=== PATIENT | male | born 1955 | race Caucasian/White ===

== ENCOUNTER 2016-05-21 19:17 | Inpatient (IN) | payer BC, OTHER ==
[~2016-05-21] VITALS: Ht 172.7 cm; Wt 91.0 kg
[~2016-05-21 19:17] MED LIST: ASPI81CH43 PO; Atorvastatin Calcium PO; CLOP75TA28 PO; ENA2.5T PO; FLU05NSL; METO25TA5 PO
[2016-05-21 20:16] LABS: Basophils # (auto) 0 uL; Basophils % (auto) 0.3 % (0.0-2.0); Eosinophils # (auto) 0.2 uL; Eosinophils % (auto) 1.9 % (0.0-7.0); Hematocrit 40.8 % (41.0-53.0); Hemoglobin 13.8 g/dL (13.5-17.5); Lymphocytes # (auto) 1.8 uL; Lymphocytes % (auto) 19.9 % (10.0-50.0); Mean Corpuscular Hemoglobin 28.7 pg (28.0-32.0); Mean Corpuscular Hgb Conc. 33.8 g/dL (32.0-36.0); Mean Corpuscular Volume 84.9 fL (80.0-100.0); Mean Platelet Volume 9.7 fL (7.4-10.4); Monocytes # (auto) 0.8 uL; Monocytes % (auto) 8.8 % (0.0-12.0); Neutrophils # (auto) 6.1 uL; Neutrophils % (auto) 69.1 % (37.0-80.0); Platelet Count (auto) 224 10^3/uL (140-450); Red Cell Distribution Width 13.2 % (11.6-16.0); White Blood Cell 8.9 10^3/uL (4.4-10.8)
[2016-05-21 20:27] LABS: INR 1.07 (0.9-1.15); Partial Thromboplastin Time 27.2 sec (22.64-33.71)
[2016-05-21 20:37] LABS: Albumin 3.6 g/dL (3.4-5.0); Alkaline Phosphatase 93 U/L (45-117); Anion Gap 9 (5-15); Aspartate Aminotransferase 12 U/L (15-37); BUN/Creatinine Ratio 15.4; Bilirubin, Total 1.3 mg/dL (0.2-1.0); Blood Urea Nitrogen 18 mg/dL (7-18); Calcium 8.7 mg/dL (8.5-10.1); Carbon Dioxide 28 mmol/L (21-32); Chloride 97 mmol/L (98-107); GFR African American 82 mL/min; GFR Non-African American 67 mL/min; Glucose 263 mg/dL (74-106); Sodium 134 mmol/L (136-145)
[2016-05-21 20:41] LABS: B-Type Natriuretic Peptide 29.12 pg/mL (0-100)
[2016-05-21 20:44] LABS: Temperature: 21.1 C (20.0-25.0)
[2016-05-21 21:10] LABS: Urine Bilirubin Negative (Negative); Urine Blood Negative /uL (Negative); Urine Color Yellow (Yellow); Urine Hyaline Cast FEW /lpf (0 - 2); Urine Ketone TRACE (Negative); Urine Mucus FEW (None Seen); Urine Nitrite Negative (Negative); Urine RBC <1 /hpf (0 - 3); Urine Urobilinogen Normal (Negative)
[2016-05-21 21:13] LABS: Urine Glucose 3+ mg/dL (Normal)
[2016-05-21] MEDS ORDERED: MORPHINE SULF INJ 2 MG/ML SYRINGE 1ML IV ONE (23:15)
[2016-05-21] MEDS ORDERED: IPRATROPIUM BROM 0.5 MG/2.5ML INH SOL NEB ONE (23:45)
[2016-05-22] MEDS ORDERED: cefTRIAXone 1GM/50ML D5W 50 ML IV ONE
[2016-05-22] MEDS ORDERED: KETOROLAC TROMETH 30 MG/ML 1ML VIAL IV ONE (00:45)
[2016-05-22] MEDS ORDERED: NITROGLYCERIN 0.4 MG SL TAB SL PRN (04:15)
[2016-05-22] MEDS ORDERED: DEXTROSE (50%) 50ML SYRG IV PRN ×2 (04:15→15:30)
[2016-05-22] MEDS ORDERED: TEMAZEPAM 15 MG CAP PO PRN (04:15)
[2016-05-22] MEDS ORDERED: MORPHINE SULF INJ 2 MG/ML SYRINGE 1ML IV PRN (04:15)
[2016-05-22] MEDS ORDERED: ACETAMINOPHEN 325 MG TAB PO PRN (04:15)
[2016-05-22 05:22] VITALS: BP 143/84
[2016-05-22] MEDS: HYDROcodone-ACET 5/325MG TAB PO PRN ×2 (05:49→10:17)
[2016-05-22] MEDS: ACCU-CHEK COMFORT CURVE STRIP VI SCH ×4 (05:54→23:29)
[2016-05-22] MEDS: InsuLIN REG 1unit/0.01ml Soln (100units/ml) SC SCH ×4 (06:00→23:32)
[2016-05-22] MEDS ORDERED: METF-312 PO ×2 (06:24→06:26)
[2016-05-22 08:00] VITALS: BP 121/65
[2016-05-22 08:07] VITALS: BP 121/65
[2016-05-22] MEDS ORDERED: ASPirin 81 mg TAB PO SCH (10:00)
[2016-05-22] MEDS: FAMOTIDINE 20 MG TAB PO SCH ×2 (10:16→21:31)
[2016-05-22] MEDS: CLOPIDOGREL BISULFATE 75 MG TAB PO SCH (10:17)
[2016-05-22] MEDS: ENALAPRIL MALEATE 2.5 MG TAB PO SCH (10:18)
[2016-05-22] MEDS: METOPROLOL TARTRATE 25 MG TAB PO SCH ×2 (10:18→21:31)
[2016-05-22] MEDS: ENOXAPARIN SOD 40 MG/0.4 ML SYRINGE SC SCH (10:19)
[2016-05-22] MEDS: LEVOFLOXACIN 500MG 100 ML IV SCH (10:20)
[2016-05-22 13:00] VITALS: BP 105/54
[2016-05-22] MEDS: ACETYLCYSTEINE ORAL for CIN 20%(200MG/ML) 4ML PO SCH ×2 (13:38→21:33)
[2016-05-22] MEDS: SODIUM BICARBONATE 50ML VIAL 150 ML in D5W 5% 1,000 ML IV SCH (13:39)
[2016-05-22] MEDS: MORPHINE SULFATE 4 MG/ML SYRG IV PRN ×3 (15:44→23:53)
[2016-05-22] MEDS ORDERED: IOHEXOL 350 MG/ML 100ML IJ ONE (15:47)
[2016-05-22 16:26] VITALS: BP 105/65
[2016-05-22] MEDS: ATORVASTATIN 20 MG TAB PO SCH (21:31)
[2016-05-22 22:00] VITALS: BP 114/65
[2016-05-23] MEDS: SODIUM BICARBONATE 50ML VIAL 150 ML in D5W 5% 1,000 ML IV SCH (00:32)
[2016-05-23 05:00] VITALS: BP 121/75
[2016-05-23] MEDS: ONDANSETRON HCL 4 MG/2 ML VIAL IV PRN ×3 (05:07→20:54)
[2016-05-23] MEDS: ACCU-CHEK COMFORT CURVE STRIP VI SCH ×3 (05:34→18:00)
[2016-05-23] MEDS: InsuLIN REG 1unit/0.01ml Soln (100units/ml) SC SCH ×3 (05:35→18:00)
[2016-05-23 05:43] LABS: Basophils # (auto) 0 uL; Eosinophils # (auto) 0 uL; Eosinophils % (auto) 0.1 % (0.0-7.0); Hematocrit 38.9 % (41.0-53.0); Hemoglobin 13.2 g/dL (13.5-17.5); Lymphocytes # (auto) 1.1 uL; Lymphocytes % (auto) 8.1 % (10.0-50.0); Mean Corpuscular Hemoglobin 28.9 pg (28.0-32.0); Mean Corpuscular Volume 85.1 fL (80.0-100.0); Mean Platelet Volume 10.3 fL (7.4-10.4); Monocytes # (auto) 1.4 uL; Monocytes % (auto) 10.2 % (0.0-12.0); Neutrophils # (auto) 11.4 uL; Neutrophils % (auto) 81.6 % (37.0-80.0); Platelet Count (auto) 225 10^3/uL (140-450); Red Cell Distribution Width 13.4 % (11.6-16.0)
[2016-05-23 06:04] LABS: Potassium 4.1 mmol/L (3.5-5.1)
[2016-05-23 06:10] LABS: Albumin 3.2 g/dL (3.4-5.0); Calcium 8.6 mg/dL (8.5-10.1)
[2016-05-23 06:12] LABS: Bilirubin, Total 1.7 mg/dL (0.2-1.0); Total Protein 7.8 g/dL (6.4-8.2)
[2016-05-23] MEDS: glipiZIDE 5 MG TAB PO SCH ×2 (06:18→18:42)
[2016-05-23 09:14] VITALS: BP 117/69
[2016-05-23] MEDS: CLOPIDOGREL BISULFATE 75 MG TAB PO SCH (09:56)
[2016-05-23] MEDS: ASPirin-EC 81 mg tab PO SCH (09:57)
[2016-05-23] MEDS: FAMOTIDINE 20 MG TAB PO SCH ×2 (09:57→22:08)
[2016-05-23] MEDS: METOPROLOL TARTRATE 25 MG TAB PO SCH ×2 (09:57→22:09)
[2016-05-23] MEDS: ENOXAPARIN SOD 40 MG/0.4 ML SYRINGE SC SCH (09:57)
[2016-05-23] MEDS: ENALAPRIL MALEATE 2.5 MG TAB PO SCH (09:57)
[2016-05-23] MEDS: LEVOFLOXACIN 500MG 100 ML IV SCH (09:58)
[2016-05-23] MEDS: SODIUM CHLORIDE 0.9% 1,000 ML IV SCH ×2 (10:12→23:47)
[2016-05-23] MEDS: ACETYLCYSTEINE ORAL for CIN 20%(200MG/ML) 4ML PO SCH ×2 (10:28→22:09)
[2016-05-23 13:00] VITALS: BP 101/51
[2016-05-23] MEDS: MORPHINE SULFATE 4 MG/ML SYRG IV PRN ×2 (16:47→20:54)
[2016-05-23 16:52] VITALS: BP 116/72
[2016-05-23 20:00] VITALS: BP 117/61
[2016-05-23 22:02] VITALS: BP 117/61
[2016-05-23] MEDS: ATORVASTATIN 20 MG TAB PO SCH (22:09)
[2016-05-24] MEDS: InsuLIN REG 1unit/0.01ml Soln (100units/ml) SC SCH ×4 (00:13→17:15)
[2016-05-24] MEDS: ACCU-CHEK COMFORT CURVE STRIP VI SCH ×4 (00:13→17:07)
[2016-05-24] MEDS: MORPHINE SULFATE 4 MG/ML SYRG IV PRN ×5 (04:00→21:16)
[2016-05-24] MEDS: ONDANSETRON HCL 4 MG/2 ML VIAL IV PRN ×5 (04:00→21:16)
[2016-05-24 04:50] VITALS: BP 111/65
[2016-05-24] MEDS: glipiZIDE 5 MG TAB PO SCH ×2 (06:56→17:06)
[2016-05-24 09:05] VITALS: BP 111/68
[2016-05-24 09:22] LABS: Basophils # (auto) 0 uL; Basophils % (auto) 0.1 % (0.0-2.0); Eosinophils # (auto) 0.1 uL; Eosinophils % (auto) 0.6 % (0.0-7.0); Hematocrit 39.4 % (41.0-53.0); Hemoglobin 13.4 g/dL (13.5-17.5); Lymphocytes # (auto) 1.3 uL; Lymphocytes % (auto) 10.3 % (10.0-50.0); Mean Corpuscular Volume 85.3 fL (80.0-100.0); Mean Platelet Volume 9.9 fL (7.4-10.4); Monocytes # (auto) 1.3 uL; Monocytes % (auto) 10.3 % (0.0-12.0); Neutrophils # (auto) 10.3 uL; Neutrophils % (auto) 78.7 % (37.0-80.0); Platelet Count (auto) 246 10^3/uL (140-450)
[2016-05-24 09:36] LABS: BUN/Creatinine Ratio 22.9; Calcium 8.8 mg/dL (8.5-10.1); Magnesium 2.4 mg/dL (1.6-2.6)
[2016-05-24] MEDS: FAMOTIDINE 20 MG TAB PO SCH ×2 (09:51→21:27)
[2016-05-24] MEDS: CLOPIDOGREL BISULFATE 75 MG TAB PO SCH (09:51)
[2016-05-24] MEDS: ENOXAPARIN SOD 40 MG/0.4 ML SYRINGE SC SCH (09:51)
[2016-05-24] MEDS: ASPirin-EC 81 mg tab PO SCH (09:51)
[2016-05-24] MEDS: METOPROLOL TARTRATE 25 MG TAB PO SCH ×2 (09:51→21:27)
[2016-05-24] MEDS: LEVOFLOXACIN 500MG 100 ML IV SCH (09:51)
[2016-05-24] MEDS: SODIUM CHLORIDE 0.9% 1,000 ML IV SCH (12:17)
[2016-05-24 13:43] VITALS: BP 96/58
[2016-05-24] MEDS ORDERED: FUROSEMIDE 20 MG/2 ML VIAL IV ONE (15:45)
[2016-05-24 16:19] VITALS: BP 125/74
[2016-05-24 20:00] VITALS: BP 114/56
[2016-05-24] MEDS: ATORVASTATIN 20 MG TAB PO SCH (21:27)
[2016-05-24 21:54] VITALS: BP 114/56
[2016-05-25] MEDS: ACCU-CHEK COMFORT CURVE STRIP VI SCH ×3 (00:34→11:57)
[2016-05-25] MEDS: InsuLIN REG 1unit/0.01ml Soln (100units/ml) SC SCH ×3 (00:37→12:18)
[2016-05-25 04:38] VITALS: BP 113/63
[2016-05-25 05:51] LABS: Basophils # (auto) 0 uL; Basophils % (auto) 0.4 % (0.0-2.0); Eosinophils # (auto) 0.2 uL; Eosinophils % (auto) 1.7 % (0.0-7.0); Hematocrit 36.2 % (41.0-53.0); Hemoglobin 12.1 g/dL (13.5-17.5); Lymphocytes # (auto) 1.3 uL; Lymphocytes % (auto) 13.2 % (10.0-50.0); Mean Corpuscular Hemoglobin 28.7 pg (28.0-32.0); Mean Corpuscular Hgb Conc. 33.5 g/dL (32.0-36.0); Mean Corpuscular Volume 85.7 fL (80.0-100.0); Mean Platelet Volume 10.3 fL (7.4-10.4); Monocytes # (auto) 1.2 uL; Monocytes % (auto) 12.7 % (0.0-12.0); Neutrophils # (auto) 7.1 uL; Platelet Count (auto) 243 10^3/uL (140-450); Red Cell Distribution Width 13.5 % (11.6-16.0); White Blood Cell 9.8 10^3/uL (4.4-10.8)
[2016-05-25 06:16] LABS: Potassium 3.5 mmol/L (3.5-5.1)
[2016-05-25 06:25] LABS: Albumin 2.5 g/dL (3.4-5.0); BUN/Creatinine Ratio 19.8; Calcium 8.1 mg/dL (8.5-10.1); Magnesium 2.4 mg/dL (1.6-2.6)
[2016-05-25] MEDS: glipiZIDE 5 MG TAB PO SCH (06:27)
[2016-05-25 06:28] LABS: Bilirubin, Total 1.4 mg/dL (0.2-1.0)
[2016-05-25 09:11] VITALS: BP 124/74
[2016-05-25] MEDS: ENOXAPARIN SOD 40 MG/0.4 ML SYRINGE SC SCH (10:01)
[2016-05-25] MEDS: CLOPIDOGREL BISULFATE 75 MG TAB PO SCH (10:05)
[2016-05-25] MEDS: ASPirin-EC 81 mg tab PO SCH (10:06)
[2016-05-25] MEDS: LEVOFLOXACIN 500MG 100 ML IV SCH (10:06)
[2016-05-25] MEDS: METOPROLOL TARTRATE 25 MG TAB PO SCH (10:06)
[2016-05-25] MEDS: FAMOTIDINE 20 MG TAB PO SCH (10:06)
[2016-05-25 13:39] VITALS: BP 129/71
== END 2016-05-25 15:00 | disposition home or self-care (01) | DRG 194 ==
LOC: ER 19:19 → TELE 19:20 → CENTRAL 05-22 05:00 → TELE-CENTR 05-23 00:17
PROVIDERS: ADMIT Nurse Practitioner; ATTEND Internal Medicine
DX: J18.8 Other pneumonia, unspecified organism (principal); E87.1 Hypo-osmolality and hyponatremia; R17 Unspecified jaundice; N18.2 Chronic kidney disease, stage 2 (mild); I25.10 Atherosclerotic heart disease of native coronary artery without angina pectoris; E78.5 Hyperlipidemia, unspecified; E11.65 Type 2 diabetes mellitus with hyperglycemia; E11.22 Type 2 diabetes mellitus with diabetic chronic kidney disease; I12.9 Hypertensive chronic kidney disease with stage 1 through stage 4 chronic kidney disease, or unspecified chronic kidney disease; Z95.5 Presence of coronary angioplasty implant and graft; Z79.4 Long term (current) use of insulin; I25.2 Old myocardial infarction
CPT/HCPCS: 36415; 71020; 71275; 76705; 80048; 80053; 81001; 82962; 83036; 83735; 83880; 84100; 84443; 84484; 85025; 85379; 85610; 85730; 93005; 93306; 94640; 96365; 96375; J0696; J1815; J1885; J1956; J2405

== ENCOUNTER → 2016-08-07 | Outpatient (CLI) | payer BC ==
[~2016-08-07] MED LIST changes: -ENA2.5T PO; +METF-312 PO; -METO25TA5 PO
[2016-08-07 09:22] LABS: Urine RBC None Seen /hpf (0 - 3)
[2016-08-07 09:27] LABS: Basophils # (auto) 0 uL; Basophils % (auto) 0.7 % (0.0-2.0); Eosinophils # (auto) 0.2 uL; Eosinophils % (auto) 3.7 % (0.0-7.0); Hematocrit 42.4 % (41.0-53.0); Lymphocytes # (auto) 1.9 uL; Lymphocytes % (auto) 38.1 % (10.0-50.0); Mean Corpuscular Hemoglobin 28.4 pg (28.0-32.0); Mean Corpuscular Volume 86.1 fL (80.0-100.0); Mean Platelet Volume 9.1 fL (7.4-10.4); Monocytes # (auto) 0.4 uL; Monocytes % (auto) 8.8 % (0.0-12.0); Neutrophils # (auto) 2.5 uL; Neutrophils % (auto) 48.7 % (37.0-80.0); Platelet Count (auto) 212 10^3/uL (140-450); Red Cell Distribution Width 14.8 % (11.6-16.0); White Blood Cell 5.1 10^3/uL (4.4-10.8)
[2016-08-07 09:49] LABS: Urine Bilirubin Negative (Negative); Urine Blood Negative /uL (Negative); Urine Color Yellow (Yellow); Urine Ketone Negative (Negative); Urine Nitrite Negative (Negative); Urine Squamous Epithelial Cell FEW /hpf (<5); Urine Urobilinogen Normal (Negative); Urine pH 5.5 (5.0-8.0)
[2016-08-07 09:53] LABS: BUN/Creatinine Ratio 14.2; Potassium 4.6 mmol/L (3.5-5.1)
[2016-08-07 10:03] LABS: Urine Glucose 4+ mg/dL (Normal)
== END | disposition home or self-care (01) ==
LOC: LAB 08:54
DX: E11.21 Type 2 diabetes mellitus with diabetic nephropathy (principal)
CPT/HCPCS: 36415; 80053; 80061; 81001; 82043; 82306; 83036; 84439; 84443; 84481; 85025; 86803

== ENCOUNTER → 2016-12-13 | Outpatient (CLI) | payer BC ==
[~2016-12-13] MED LIST changes: -METF-312 PO; +METF-370 PO
[2016-12-13 11:23] LABS: Albumin 3.8 g/dL (3.4-5.0); BUN/Creatinine Ratio 20.6; Bilirubin, Total 0.9 mg/dL (0.2-1.0); Calcium 8.8 mg/dL (8.5-10.1); Potassium 4.3 mmol/L (3.5-5.1); Total Protein 7.4 g/dL (6.4-8.2)
== END | disposition home or self-care (01) ==
LOC: LAB 10:32
PROVIDERS: ATTEND Internal Medicine
DX: I10 Essential (primary) hypertension (principal); E11.9 Type 2 diabetes mellitus without complications
CPT/HCPCS: 36415; 80053; 83036; 86900; 86901

== ENCOUNTER → 2017-05-12 | Outpatient (CLI) | payer BC ==
[2017-05-12 11:23] LABS: Basophils # (auto) 0.1 uL; Eosinophils # (auto) 0.1 uL; Eosinophils % (auto) 2.2 % (0.0-7.0); Hematocrit 44.5 % (41.0-53.0); Lymphocytes # (auto) 1.8 uL; Mean Corpuscular Hemoglobin 29.7 pg (28.0-32.0); Mean Corpuscular Hgb Conc. 33.7 g/dL (32.0-36.0); Monocytes # (auto) 0.4 uL; Monocytes % (auto) 7.8 % (0.0-12.0); Neutrophils # (auto) 2.9 uL; Nucleated Red Blood Cells % 0.2 %; Platelet Count (auto) 194 10^3/uL (140-450); Red Blood Cells 5.05 10^6/uL (4.5-5.90); Red Cell Distribution Width 13.8 % (11.8-14.3); White Blood Cell 5.3 10^3/uL (4.4-10.8)
[2017-05-12 13:14] LABS: Albumin 4.1 g/dL (3.4-5.0); BUN/Creatinine Ratio 16.7; Bilirubin, Total 1.3 mg/dL (0.2-1.0); Calcium 9.2 mg/dL (8.5-10.1); Potassium 5.2 mmol/L (3.5-5.1); Total Protein 8.1 g/dL (6.4-8.2)
== END | disposition home or self-care (01) ==
LOC: LAB 10:37
PROVIDERS: ATTEND Physician Assistant
DX: E11.22 Type 2 diabetes mellitus with diabetic chronic kidney disease (principal); E11.21 Type 2 diabetes mellitus with diabetic nephropathy; N18.9 Chronic kidney disease, unspecified; I50.32 Chronic diastolic (congestive) heart failure; E55.9 Vitamin D deficiency, unspecified; E78.5 Hyperlipidemia, unspecified; Z86.73 Personal history of transient ischemic attack (TIA), and cerebral infarction without residual deficits
CPT/HCPCS: 36415; 80053; 80061; 82306; 83036; 85025

== ENCOUNTER → 2017-05-19 | Outpatient (CLI) | payer BC | END | disposition home or self-care (01) | LOC: XY 08:14 | PROVIDERS: ATTEND Internal Medicine Cardiovascular Disease | DX: I25.2 Old myocardial infarction (principal); I13.0 Hypertensive heart and chronic kidney disease with heart failure and stage 1 through stage 4 chronic kidney disease, or unspecified chronic kidney disease; E11.22 Type 2 diabetes mellitus with diabetic chronic kidney disease; N18.9 Chronic kidney disease, unspecified; I50.32 Chronic diastolic (congestive) heart failure | CPT/HCPCS: 78452; 93017; A9500 ==

== ENCOUNTER → 2017-08-26 | Outpatient (CLI) | payer BC ==
[2017-08-26 09:41] LABS: Cholesterol 113 mg/dL (< 200); HDL Cholesterol 39 mg/dL (40-59); LDL Cholesterol 70 mg/dL (< 100); Triglycerides 160 mg/dL (< 150)
== END | disposition home or self-care (01) ==
LOC: LAB 08:41
PROVIDERS: ATTEND Internal Medicine Cardiovascular Disease
DX: E11.21 Type 2 diabetes mellitus with diabetic nephropathy (principal); E11.22 Type 2 diabetes mellitus with diabetic chronic kidney disease; E78.5 Hyperlipidemia, unspecified
CPT/HCPCS: 36415; 80061

== ENCOUNTER → 2018-04-29 | Outpatient (CLI) | payer BC ==
[2018-04-29 10:12] LABS: Urine Bacteria NONE SEEN /hpf (None Seen); Urine Blood Negative /uL (Negative); Urine WBC <1 /hpf (0 - 3)
[2018-04-29 10:19] LABS: Basophils # (auto) 0.1 uL; Basophils % (auto) 1.1 % (0.0-2.0); Eosinophils # (auto) 0.1 uL; Eosinophils % (auto) 2.8 % (0.0-7.0); Hematocrit 43.4 % (41.0-53.0); Hemoglobin 14.6 g/dL (13.5-17.5); Lymphocytes # (auto) 1.5 uL; Lymphocytes % (auto) 31.4 % (10.0-50.0); Mean Corpuscular Hemoglobin 29.8 pg (28.0-32.0); Mean Corpuscular Hgb Conc. 33.7 g/dL (32.0-36.0); Mean Corpuscular Volume 88.4 fL (80.0-100.0); Monocytes # (auto) 0.4 uL; Monocytes % (auto) 8.5 % (0.0-12.0); Neutrophils # (auto) 2.7 uL; Neutrophils % (auto) 56.2 % (37.0-80.0); Nucleated Red Blood Cells % 0.1 %; Platelet Count (auto) 181 10^3/uL (140-450); Red Blood Cells 4.91 10^6/uL (4.5-5.90); Red Cell Distribution Width 13.7 % (11.8-14.3); White Blood Cell 4.9 10^3/uL (4.4-10.8)
[2018-04-29 10:27] LABS: INR 0.93 (0.9-1.15); Partial Thromboplastin Time 26.9 sec (23.78-33.04)
[2018-04-29 11:46] LABS: Potassium 5.2 mmol/L (3.5-5.1)
[2018-04-29 11:55] LABS: Bilirubin, Total 0.8 mg/dL (0.2-1.0); Calcium 9.1 mg/dL (8.5-10.1); Total Protein 7.7 g/dL (6.4-8.2)
== END | disposition home or self-care (01) ==
LOC: LAB 09:02
PROVIDERS: ATTEND Orthopaedic Surgery Adult Reconstructive Orthopaedic Surgery
DX: Z01.818 Encounter for other preprocedural examination (principal)
CPT/HCPCS: 36415; 80053; 81001; 85025; 85610; 85730

== ENCOUNTER → 2020-01-07 | Outpatient (CLI) | payer BC ==
[2020-01-07 10:52] LABS: Basophils # (auto) 0.1 10 ^3/uL (0-0.2); Eosinophils # (auto) 0.2 10 ^3/uL (0-0.8); Eosinophils % (auto) 3.4 % (0.0-7.0); Hematocrit 43.9 % (41.0-53.0); Hemoglobin 14.8 g/dL (13.5-17.5); Lymphocytes # (auto) 1.9 10 ^3/uL (0.4-5.4); Lymphocytes % (auto) 38.1 % (10.0-50.0); Mean Corpuscular Hemoglobin 29.9 pg (28.0-32.0); Mean Corpuscular Hgb Conc. 33.8 g/dL (32.0-36.0); Mean Corpuscular Volume 88.4 fL (80.0-100.0); Monocytes # (auto) 0.4 10 ^3/uL (0-1.3); Monocytes % (auto) 7.7 % (0.0-12.0); Neutrophils # (auto) 2.5 10 ^3/uL (1.6-8.6); Neutrophils % (auto) 49.8 % (37.0-80.0); Platelet Count (auto) 166 10^3/uL (140-450); Red Blood Cells 4.97 10^6/uL (4.5-5.90); Red Cell Distribution Width 13.4 % (11.8-14.3)
[2020-01-07 10:58] LABS: Urine Bacteria NONE SEEN /hpf (None Seen); Urine Blood Negative /uL (Negative); Urine Hyaline Cast FEW /lpf (0 - 2); Urine Mucus FEW (None Seen); Urine Specific Gravity 1.027 (1.001-1.035); Urine WBC <1 /hpf (0 - 3)
[2020-01-07 11:19] LABS: Calcium 9.4 mg/dL (8.5-10.1); Potassium 5.3 mmol/L (3.5-5.1)
[2020-01-07 11:28] LABS: BUN/Creatinine Ratio 11.2; Bilirubin, Total 1.2 mg/dL (0.2-1.0); Total Protein 7.9 g/dL (6.4-8.2)
== END | disposition home or self-care (01) ==
LOC: LAB 10:31
PROVIDERS: ATTEND Physician Assistant
DX: E11.22 Type 2 diabetes mellitus with diabetic chronic kidney disease (principal); N18.2 Chronic kidney disease, stage 2 (mild); I50.32 Chronic diastolic (congestive) heart failure; E78.5 Hyperlipidemia, unspecified; E55.9 Vitamin D deficiency, unspecified
CPT/HCPCS: 36415; 80053; 80061; 81001; 82306; 83036; 85025

== ENCOUNTER → 2020-07-10 | Outpatient (CLI) | payer BC ==
[2020-07-10 16:49] LABS: Basophils # (auto) 0 10 ^3/uL (0-0.2); Basophils % (auto) 0.8 % (0.0-2.0); Eosinophils # (auto) 0.1 10 ^3/uL (0-0.8); Eosinophils % (auto) 1.8 % (0.0-7.0); Hemoglobin 14.4 g/dL (13.5-17.5); Lymphocytes # (auto) 2.1 10 ^3/uL (0.4-5.4); Lymphocytes % (auto) 37.2 % (10.0-50.0); Mean Corpuscular Hemoglobin 30.1 pg (28.0-32.0); Mean Corpuscular Hgb Conc. 34.2 g/dL (32.0-36.0); Mean Corpuscular Volume 87.9 fL (80.0-100.0); Monocytes # (auto) 0.5 10 ^3/uL (0-1.3); Monocytes % (auto) 8.4 % (0.0-12.0); Neutrophils # (auto) 2.9 10 ^3/uL (1.6-8.6); Neutrophils % (auto) 51.8 % (37.0-80.0); Nucleated Red Blood Cells % 0.2 %; Platelet Count (auto) 166 10^3/uL (140-450); Red Blood Cells 4.78 10^6/uL (4.5-5.90); Red Cell Distribution Width 13.6 % (11.8-14.3); White Blood Cell 5.6 10^3/uL (4.4-10.8)
[2020-07-10 16:51] LABS: Urine Bacteria NONE SEEN /hpf (None Seen); Urine Blood Negative /uL (Negative); Urine Specific Gravity 1.028 (1.001-1.035); Urine WBC <1 /hpf (0 - 3)
[2020-07-10 17:11] LABS: Partial Thromboplastin Time 26.5 sec (23.0-31.2)
[2020-07-10 19:11] LABS: Albumin 3.7 g/dL (3.4-5.0); Calcium 8.8 mg/dL (8.5-10.1); Potassium 4.8 mmol/L (3.5-5.1)
[2020-07-10 19:14] LABS: BUN/Creatinine Ratio 16.4; Bilirubin, Total 0.7 mg/dL (0.2-1.0); Total Protein 7.3 g/dL (6.4-8.2)
== END | disposition home or self-care (01) ==
LOC: LAB 16:14
PROVIDERS: ATTEND Physician Assistant
DX: Z01.818 Encounter for other preprocedural examination (principal); H26.8 Other specified cataract
CPT/HCPCS: 36415; 80053; 81001; 85025; 85610; 85730

== ENCOUNTER → 2020-08-02 | Outpatient (CLI) | payer OTHER ==
[2020-08-02 14:20] LABS: Urine Blood Negative /uL (Negative); Urine Specific Gravity 1.034 (1.001-1.035)
[2020-08-02 14:38] LABS: Partial Thromboplastin Time 26.5 sec (23.0-31.2)
[2020-08-02 14:41] LABS: Basophils # (auto) 0.1 10 ^3/uL (0-0.2); Basophils % (auto) 1.1 % (0.0-2.0); Eosinophils # (auto) 0.1 10 ^3/uL (0-0.8); Eosinophils % (auto) 2.2 % (0.0-7.0); Hematocrit 42.4 % (41.0-53.0); Hemoglobin 14.4 g/dL (13.5-17.5); Lymphocytes % (auto) 38.7 % (10.0-50.0); Mean Corpuscular Hemoglobin 30.1 pg (28.0-32.0); Mean Corpuscular Hgb Conc. 33.9 g/dL (32.0-36.0); Mean Corpuscular Volume 88.8 fL (80.0-100.0); Monocytes # (auto) 0.4 10 ^3/uL (0-1.3); Neutrophils # (auto) 2.6 10 ^3/uL (1.6-8.6); Nucleated Red Blood Cells % 0.2 %; Platelet Count (auto) 171 10^3/uL (140-450); Red Blood Cells 4.77 10^6/uL (4.5-5.90); Red Cell Distribution Width 13.8 % (11.8-14.3); White Blood Cell 5.1 10^3/uL (4.4-10.8)
[2020-08-02 15:07] LABS: Albumin 3.8 g/dL (3.4-5.0); Calcium 8.6 mg/dL (8.5-10.1); Potassium 4.4 mmol/L (3.5-5.1)
[2020-08-02 15:11] LABS: BUN/Creatinine Ratio 15.1; Bilirubin, Total 0.8 mg/dL (0.2-1.0); Total Protein 7.4 g/dL (6.4-8.2)
== END | disposition home or self-care (01) ==
LOC: LAB 13:55
PROVIDERS: ATTEND Specialist
DX: Z01.812 Encounter for preprocedural laboratory examination (principal); H25.11 Age-related nuclear cataract, right eye; D68.311 Acquired hemophilia; Z79.01 Long term (current) use of anticoagulants
CPT/HCPCS: 36415; 80053; 81003; 85025; 85610; 85730

== ENCOUNTER → 2020-09-04 | Outpatient (CLI) | payer OTHER ==
[2020-09-04 10:50] LABS: Cholesterol 141 mg/dL (< 200); HDL Cholesterol 42 mg/dL (40-59); LDL Cholesterol 79 mg/dL (< 100); Triglycerides 163 mg/dL (< 150)
== END | disposition home or self-care (01) ==
LOC: LAB 09:56
PROVIDERS: ATTEND Internal Medicine
DX: I50.32 Chronic diastolic (congestive) heart failure (principal); E78.5 Hyperlipidemia, unspecified
CPT/HCPCS: 36415; 80061; 84443

== ENCOUNTER → 2020-09-06 | Outpatient (CLI) | payer OTHER ==
[~2020-09-06] VITALS: Ht 172.7 cm; Wt 86.2 kg
[~2020-09-06] MED LIST changes: +ADENOSINE 72 MG in GIVE UN-DILUTED 0 ML IV STA
== END | disposition home or self-care (01) ==
LOC: XY 07:30
PROVIDERS: ATTEND Internal Medicine
DX: Z01.810 Encounter for preprocedural cardiovascular examination (principal); I25.10 Atherosclerotic heart disease of native coronary artery without angina pectoris; H26.9 Unspecified cataract; E78.5 Hyperlipidemia, unspecified; E11.9 Type 2 diabetes mellitus without complications; I10 Essential (primary) hypertension; Z95.0 Presence of cardiac pacemaker
CPT/HCPCS: 78452; 93017; A9500; J0153

== ENCOUNTER → 2020-09-08 | Outpatient (CLI) | payer OTHER ==
[~2020-09-08] MED LIST changes: -ADENOSINE 72 MG in GIVE UN-DILUTED 0 ML IV STA
== END | disposition home or self-care (01) ==
LOC: XYW 09:21
PROVIDERS: ATTEND Internal Medicine
DX: I08.0 Rheumatic disorders of both mitral and aortic valves (principal); I11.9 Hypertensive heart disease without heart failure; Z01.810 Encounter for preprocedural cardiovascular examination
CPT/HCPCS: 93306

== ENCOUNTER 2021-03-03 11:28 | Emergency (ER) | payer OTHER ==
[~2021-03-03] VITALS: Ht 172.7 cm; Wt 86.2 kg
[2021-03-03 12:03] VITALS: BP 140/83
== END 2021-03-03 12:48 | disposition home or self-care (01) ==
LOC: ER 11:28
DX: J20.9 Acute bronchitis, unspecified (principal); J04.0 Acute laryngitis; E11.9 Type 2 diabetes mellitus without complications; I25.2 Old myocardial infarction
CPT/HCPCS: 71045

== ENCOUNTER → 2021-07-31 | Outpatient (CLI) | payer OTHER | END | disposition home or self-care (01) | LOC: XYW 08:10 | PROVIDERS: ATTEND Internal Medicine | DX: I07.1 Rheumatic tricuspid insufficiency (principal); I10 Essential (primary) hypertension; I42.9 Cardiomyopathy, unspecified | CPT/HCPCS: 93306 ==

== ENCOUNTER → 2021-10-25 | Outpatient (CLI) | payer OTHER ==
[2021-10-25 08:50] LABS: Basophils # (auto) 0.1 10 ^3/uL (0-0.2); Basophils % (auto) 1.3 % (0.0-2.0); Eosinophils # (auto) 0.1 10 ^3/uL (0-0.8); Eosinophils % (auto) 1.9 % (0.0-7.0); Hematocrit 44.8 % (41.0-53.0); Hemoglobin 14.6 g/dL (13.5-17.5); Lymphocytes # (auto) 1.7 10 ^3/uL (0.4-5.4); Lymphocytes % (auto) 39.8 % (10.0-50.0); Mean Corpuscular Hgb Conc. 32.5 g/dL (32.0-36.0); Mean Corpuscular Volume 89.1 fL (80.0-100.0); Monocytes # (auto) 0.4 10 ^3/uL (0-1.3); Monocytes % (auto) 9.4 % (0.0-12.0); Neutrophils % (auto) 47.6 % (37.0-80.0); Nucleated Red Blood Cells % 0.1 %; Red Blood Cells 5.03 10^6/uL (4.5-5.90); Red Cell Distribution Width 14.3 % (11.8-14.3); White Blood Cell 4.2 10^3/uL (4.4-10.8)
[2021-10-25 09:10] LABS: Albumin 3.8 g/dL (3.4-5.0); Potassium 4.8 mmol/L (3.5-5.1)
[2021-10-25 09:13] LABS: BUN/Creatinine Ratio 18.3; Bilirubin, Total 1.3 mg/dL (0.2-1.0); Total Protein 7.3 g/dL (6.4-8.2)
== END | disposition home or self-care (01) ==
LOC: LAB 08:26
PROVIDERS: ATTEND Nurse Practitioner Family
DX: Z00.00 Encounter for general adult medical examination without abnormal findings (principal); I42.8 Other cardiomyopathies; R35.1 Nocturia; E11.9 Type 2 diabetes mellitus without complications; I10 Essential (primary) hypertension
CPT/HCPCS: 36415; 80053; 80061; 82306; 83036; 85025

== ENCOUNTER → 2023-01-27 | Outpatient (CLI) | payer OTHER | END | disposition home or self-care (01) | LOC: XYW 09:33 | PROVIDERS: ATTEND Student in an Organized Health Care Education/Training Program | DX: R20.2 Paresthesia of skin (principal) | CPT/HCPCS: 93925 ==

== ENCOUNTER 2023-04-30 07:12 | Day surgery (SDC) | payer OTHER ==
[2023-04-28 08:54] LABS: Basophils # (auto) 0 10 ^3/uL (0-0.2); Basophils % (auto) 0.8 % (0.0-2.0); Eosinophils # (auto) 0.2 10 ^3/uL (0-0.8); Hemoglobin 13.8 g/dL (13.5-17.5); Lymphocytes # (auto) 1.3 10 ^3/uL (0.4-5.4); Lymphocytes % (auto) 24.5 % (10.0-50.0); Mean Corpuscular Hemoglobin 29.6 pg (28.0-32.0); Mean Corpuscular Volume 89.6 fL (80.0-100.0); Monocytes # (auto) 0.4 10 ^3/uL (0-1.3); Monocytes % (auto) 7.6 % (0.0-12.0); Neutrophils # (auto) 3.4 10 ^3/uL (1.6-8.6); Neutrophils % (auto) 64.1 % (37.0-80.0); Nucleated Red Blood Cells % 0.1 %; Red Blood Cells 4.68 10^6/uL (4.5-5.90); Red Cell Distribution Width 14.4 % (11.8-14.3); White Blood Cell 5.3 10^3/uL (4.4-10.8)
[2023-04-28 09:06] LABS: INR 0.98 (0.9-1.15); Partial Thromboplastin Time 28.4 SEC (24.5-34.5); Prothrombin Time 10.3 sec (9.3-11.8)
[2023-04-28 09:17] LABS: Alanine Aminotransferase 36 U/L (7-40); Albumin 4.4 g/dL (3.2-4.8); Alkaline Phosphatase 100 U/L (46-116); Anion Gap 5 (5-15); Aspartate Aminotransferase 21 U/L (13-40); BUN/Creatinine Ratio 11.7 (10.0-20.0); Bilirubin, Total 0.7 mg/dL (0.2-1.0); Blood Urea Nitrogen 13 mg/dL (9-23); Calcium 9.7 mg/dL (8.5-10.1); Carbon Dioxide 26 mmol/L (20-30); Chloride 106 mmol/L (98-107); Glucose 173 mg/dL (74-106); Potassium 4.6 mmol/L (3.5-5.1); Sodium 137 mmol/L (136-145); Total Protein 7.1 g/dL (5.7-8.2)
[~2023-04-30] VITALS: Ht 172.7 cm; Wt 86.2 kg
[~2023-04-30 07:12] MED LIST changes: +ASPI1TAB19 PO; -ASPI81CH43 PO; +ATOR20TA PO; -Atorvastatin Calcium PO; -CLOP75TA28 PO; +EMPA1TAB3 PO; -FLU05NSL; +GLIP-197 PO; -METF-370 PO; +METF-929 PO
[2023-04-30] MEDS ORDERED: IODIXANOL 320MG/ML 100ML BTL IV ONE ×2 (10:00→11:08)
[2023-04-30] MEDS ORDERED: LIDOCAINE 2%HCL (LOCAL ANESTH.) INJ 20ML MDV ONE (10:01)
[2023-04-30] MEDS ORDERED: ANGIOMAX 250 MG VIAL IV ONE ×2 (10:04→11:08)
[2023-04-30] MEDS ORDERED: SODIUM CHL 0.9% 50 ML ONE ×2 (10:04→11:08)
[2023-04-30] MEDS ORDERED: fentaNYL CITRATE 100 MCG/2 ML VL ONE (10:04)
[2023-04-30] MEDS ORDERED: MIDAZOLAM HCL 2MG/2ML 2ml VIAL (1mg/ml) ONE (10:04)
[2023-04-30] MEDS ORDERED: CLOPIDOGREL 300 MG TAB ONE (10:56)
[2023-04-30] MEDS ORDERED: ASPirin 81 mg TAB ONE (10:57)
[2023-04-30] MEDS ORDERED: CLOP75TA28 PO (14:25)
== END 2023-04-30 16:00 | disposition home or self-care (01) ==
LOC: CATH 07:12
PROVIDERS: ATTEND Student in an Organized Health Care Education/Training Program
DX: I70.221 Atherosclerosis of native arteries of extremities with rest pain, right leg (principal); I70.211 Atherosclerosis of native arteries of extremities with intermittent claudication, right leg; I10 Essential (primary) hypertension; E11.9 Type 2 diabetes mellitus without complications; Z79.899 Other long term (current) drug therapy; Z79.82 Long term (current) use of aspirin; Z79.84 Long term (current) use of oral hypoglycemic drugs; Z83.3 Family history of diabetes mellitus; Z84.1 Family history of disorders of kidney and ureter; Z82.5 Family history of asthma and other chronic lower respiratory diseases
CPT/HCPCS: 36415; 37228; 75716; 80053; 85025; 85610; 85730; C1725; C1769; C1887; C1894; J0583; J1644; J2250; J3010; J7030; Q9967; 33228; 99152